=== PATIENT | male | born 1985 | race Caucasian/White ===

== ENCOUNTER 2018-11-22 18:06 | Emergency (ER) | payer OTHER ==
[2018-11-22] MEDS ORDERED: PROPARACAINE 0.5% 15 ML OPHT DROP ONE (18:14)
[2018-11-22] MEDS ORDERED: FLUORESCEIN SODIUM 1 MG STRIP OP ONE ×2 (18:14→18:56)
--- NOTE | 2018-11-22 18:26 | EDPHY ---
HPI/HX/ROS/PE/MDM Narrative: CHIEF COMPLAINT: Hit in eye with pliers HISTORY OF PRESENT ILLNESS: The patient is a 33 y/o male with a history of left eye glaucoma with surgical repair arriving after hitting himself in the eye with pliers. 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 He had a shunt put in to control the pressure. About a year after the original glaucoma surgery he had cataract and lasik eye surgery. He reports that a oval-shaped, fixed left pupil and iris defect in the upper medial region are normal. This after noon, he was working on tightening a zip tie on a bicycle using needle-nose pliers when the pliers slipped, hitting his left eye. He reports pain and blood coming from the left eye. He denies any other injuries. He denies taking anticoagulants. States his vision in that eye is somewhat blurred but appears close to normal. No fever, chills, chest pain, shortness of breath, palpitations, vomiting, diarrhea, urinary complaints, headache, lightheadedness. 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 Moderate distress. Visual Acuity: noted from Nurse's notes. Focused examination of the left eye. Eyelid: Faint abrasion and ecchymosis are present on the medial upper eyelid as well as the medial lower eyelid. Pupils: Left pupil is oval shaped, not reactive to light. Right pupil is normal. Extraocular movements are intact. Defect is visible in the upper medial quadrant of the left iris. Conjunctivae: Subconjunctival hemorrhage, small laceration present medial conjunctiva. Cornea: Exam with fluorescein shows corneal abrasions across the lower cornea with uptake along the lateral conjunctiva. No Anjelica sign is noted. Anterior chamber: No cell or flare. Anterior chamber appears deep. Skin: No proptosis, no vesicles. ED Course: The patient presents after hitting his left eye with needle nosed pliers. Exam is concerning for an open globe. Several of the classic findings of an open globe such as an irregular shaped pupil as well as an iris defect are present for a pre-existing injury. His acuity is 20/30 in the right eye and 20/[address] Montes, ophthalmology will evaluate in the emergency department. 20:00 - Dr. Montes, ophthalmology, evaluated this patient in the emergency department. He does not feel the globe has been punctured. He feel this patient is safe to follow up next week with instructions. Patient discharged with Polysporin ointment to the eye 4 times a day, eye shield , pain medications as needed, and close follow-up. Please see Dr. Montes's consultation. MDM: Differential diagnosis for the patient's presenting complaints includes corneal abrasion, corneal laceration, conjunctival laceration, open globe, lens dislocation, contusion. - Data Points Medications Given: Discontinued Medications Neomycin/Polymyxin/Bacitracin (Neosporin Opht Oint) 1 sujatha LEFTEYE QID MILTON Stop: 12/22/18 20:59 Last Admin: 11/22/18 20:25 Dose: 1 sujatha Oxycodone/Acetaminophen (Percocet 5/325) 1 tab PO EDNOW ONE Stop: 11/22/18 18:30 Last Admin: 11/22/18 18:36 Dose: 1 tab Proparacaine HCl (Alcaine 0.5%) 1 drops LEFTEYE ONCE ONE Stop: 11/22/18 18:46 Last Admin: 11/22/18 18:55 Dose: 1 drop General Time Seen by Provider: 11/22/18 18:13 Initial Vital Signs: Initial Vital Signs Temperature (C) 36.8 C 11/22/18 18:10 Heart Rate 83 11/22/18 18:10 Respiratory Rate 20 11/22/18 18:10 Blood Pressure 147/82 H 11/22/18 18:10 O2 Sat (%) 98 11/22/18 18:10 O2 Delivery Mode Room Air Allergies/Adverse Reactions: No Known Allergies Allergy (Unverified 11/22/18 18:09) Departure - Departure Disposition: Home, Routine, Self-Care Clinical Impression: Conjunctival laceration Qualifiers: Encounter type: initial encounter Laterality: left Qualified Code(s): S05.32XA - Ocular laceration without prolapse or loss of intraocular tissue, left eye, initial encounter Condition: Good Instructions: Neomycin/Polymyxin B/Gramicidin (Into the eye), Corneal Abrasion (ED) Additional Instructions: 1. Please apply Polysporin to your eye 4 times per day as directed. 2. Please use eye shield over your eye as directed. 3. Please follow up next week (Sunday or ) with Dr. Denis Montes. 4. If you have worsening of vision, increased bleeding from the eye, or any other worsening of condition, call Dr. Montes for an urgent visit. For any severe worsening of condition, please present to an emergency department for treatment. Referrals: Denis Montes [Medical Doctor] - As per Instructions Report Scribed for: Negra Canales Report Scribed by: Haily Devi Date of Report: 11/22/18 Time of Report: 19:10 Physician Review and Approval Statement: Portions of this note were transcribed by a medical records coordinator. I personally performed a history, physical exam, medical decision making, and confirmed accuracy of information the transcribed note.
[2018-11-22] MEDS ORDERED: OXYCODONE/APAP 5/325 TAB PO ONE (18:29)
[2018-11-22] MEDS ORDERED: PROPARACAINE 0.5% 15 ML OPHT DROP LEFTEYE ONE (18:45)
--- NOTE | 2018-11-22 19:23 | PDCONSULT ---
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 He is having pain. He feels his vision is slightly blurry but not a large change from his previous vision. 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 He had cataract surgery, a trabeculectomy and LASIK. 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 Meds: see chart Allergies: see chart Social history: n/a Exam: [facility] sc OD: 20/30 OS: 20/50 Pupils: OD: round and reactive, no APD OS: no APD by reverse, poorly reactive, corectopia and iris sphinter tears, large PI superior nasal. EOM: full OU CVFs: full OU Ta: OD: 16, OS 22 Slit lamp exam Lids: OD: normal OS: mild swelling Conj OD: normal OS: MILTON nasally with conj laceration ~1x3mm, laceration and nasal conj explored at slit lamp with qtip, able to visual sclera and no laceration and no uvea seen, superior conj may have low lying old bleb but no sclerotomy visualized, no uvea seen Sclera: OD: normal OS: small area of bare sclera seen nasally but no uvea or lacerations Anterior chamber OD: normal OS: deep, no hyphema or inflammation seen Iris: OD: normal OS: irregular pupil, large sectoral iris defect superior/nasal lens OD: normal OS: PCIOL in good position without phacodynesis Posterior chamber vitreous OS: normal nerve OS: normal c/d macula OS: normal periphery OS: normal Assessment / Plan 33 year old man with ocular trauma OS. It appears the only new injury is a nasal conj laceration. The anterior chamber findings are all explained by his previous history of traumatic glaucoma. Likely had angle recession which explains the deep chamber and the iris defect is likely from a trab. No signs of ruptured globe and pressure normal 1)Conj laceration -use polysporin ophthalmic ointment QID -use shield at all times -follow up Sunday or Sunday next week with Denis Montes MD at the [facility], . We will contact you for an appointment -call [facility] reservationist at the number above for any worsening of vision or increased pain
[2018-11-22 20:30] VITALS: BP 133/76
[2018-11-22] MEDS ORDERED: NEOSPORIN OPHT OINT 3.5GM LEFTEYE SCH (21:00)
== END 2018-11-22 20:30 | disposition home or self-care (01) ==
DX: S05.32XA Ocular laceration without prolapse or loss of intraocular tissue, left eye, initial encounter (principal); W27.8XXA Contact with other nonpowered hand tool, initial encounter; Y93.89 Activity, other specified